=== PATIENT | male | born 1955 | race Caucasian/White ===

== ENCOUNTER 2019-03-07 11:04 | Emergency (ER) | payer BC ==
[~2019-03-07] VITALS: Ht 203.2 cm; Wt 136.1 kg
[2019-03-07] MEDS ORDERED: ASPIRIN CHEWABLE 81 MG TABLET. PO ONE (11:15)
--- NOTE | 2019-03-07 11:18 | PHYS DOC ---
Adult General Chief Complaint Chief Complaint: CHEST PAIN HPI HPI Patient is a 63 year old male who is presenting with chest discomfort. He says it feels like there is a "bubble pushing up on my heart". Symptoms are moderate to severe slowly worsening with time He's had this for about an hour he was driving when it started to try to get her walk around but that did not help it did not really make it worse either he feels like it hurts to take a deep breath. He did take some sort of a laxative for constipation last night he woke up this morning and he did have some sort of the gurgling in his stomach but did not actually have a bowel movement and then this pain started shortly after that. Past medical history includes hypertension does see Dr. Savage denies smoking alcohol or drugs positive family history of coronary artery disease in the father Review of Systems Review of Systems Constitutional: Denies fever or chills [] Eyes: Denies change in visual acuity, redness, or eye pain [] HENT: Denies nasal congestion or sore throat [] Respiratory: Denies cough or shortness of breath [] Cardiovascular: No additional information not addressed in HPI [] GI: Denies abdominal pain, nausea, vomiting, bloody stools or diarrhea [] : Denies dysuria or hematuria [] Musculoskeletal: Denies back pain or joint pain [] Integument: Denies rash or skin lesions [] Neurologic: Denies headache, focal weakness or sensory changes [] Endocrine: Denies polyuria or polydipsia [] All other systems were reviewed and found to be within normal limits, except as documented in this note. Current Medications Current Medications Current Medications Medications (Trade) Dose Ordered Sig/Hamlet Start Time Stop Time Status Last Admin Dose Admin Aspirin (Children'S Aspirin) 324 mg 1X ONCE 03/07/19 11:15 03/07/19 11:37 DC 03/07/19 11:44 324 MG Fentanyl Citrate (Fentanyl 2ml Vial) 50 mcg 1X ONCE 03/07/19 11:30 03/07/19 11:37 DC 03/07/19 11:51 50 MCG Info (CONTRAST GIVEN -- Rx MONITORING) 1 each PRN DAILY PRN 03/07/19 13:00 03/07/19 16:04 DC Iohexol (Omnipaque 350 Mg/ml) 85 ml 1X ONCE 03/07/19 13:00 03/07/19 13:01 DC Allergies Allergies Allergies Coded Allergies Type Severity Reaction Last Updated Verified No Known Drug Allergies 03/07/19 No Physical Exam Physical Exam Constitutional: Well developed, well nourished, moderate distress patient is diaphoretic HENT: Normocephalic, atraumatic, bilateral external ears normal, oropharynx moist, no oral exudates, nose normal. [] Eyes: PERRLA, EOMI, conjunctiva normal, no discharge. [] Neck: Normal range of motion, no tenderness, supple, no stridor. [] Cardiovascular:Heart rate regular rhythm, no murmur [] Lungs & Thorax: Bilateral breath sounds clear to auscultation [] Abdomen: Bowel sounds normal, soft, no tenderness, no masses, no pulsatile masses. [] Skin: See above Back: No tenderness, no CVA tenderness. [] Extremities: No tenderness, no cyanosis, no clubbing, ROM intact, asymmetric ed ju noted lle. Neurologic: Alert and oriented X 3, normal motor function, normal sensory function, no focal deficits noted. [] Psychologic: Affect normal, judgement normal, mood normal. [] Current Patient Data Vital Signs Vital Signs Date Time Temp Pulse Resp B/P (MAP) Pulse Ox O2 Delivery O2 Flow Rate FiO2 03/07/19 11:57 72 18 180/99 (126) 95 Room Air 03/07/19 11:16 98.7 98.7 Lab Values Laboratory Tests Test 03/07/19 11:35 White Blood Count 8.8 x10^3/uL (4.0-11.0) Red Blood Count 4.53 x10^6/uL (4.30-5.70) Hemoglobin 14.0 g/dL (13.0-17.5) Hematocrit 40.2 % (39.0-53.0) Mean Corpuscular Volume 89 fL (79-100) Mean Corpuscular Hemoglobin 31 pg (25-35) Mean Corpuscular Hemoglobin Concent 35 g/dL (31-37) Red Cell Distribution Width 12.3 % (11.5-14.5) Platelet Count 218 x10^3/uL (140-400) Neutrophils (%) (Auto) 78 % (31-73) H Lymphocytes (%) (Auto) 9 % (24-48) L Monocytes (%) (Auto) 11 % (0-9) H Eosinophils (%) (Auto) 2 % (0-3) Basophils (%) (Auto) 0 % (0-3) Neutrophils # (Auto) 6.9 x10^3/uL (1.8-7.7) Lymphocytes # (Auto) 0.8 x10^3/uL (1.0-4.8) L Monocytes # (Auto) 0.9 x10^3/uL (0.0-1.1) Eosinophils # (Auto) 0.2 x10^3/uL (0.0-0.7) Basophils # (Auto) 0.0 x10^3/uL (0.0-0.2) Prothrombin Time 14.3 SEC (11.7-14.0) H Prothrombin Time INR 1.1 (0.8-1.1) Sodium Level 143 mmol/L (136-145) Potassium Level 3.4 mmol/L (3.5-5.1) L Chloride Level 104 mmol/L (98-107) Carbon Dioxide Level 28 mmol/L (21-32) Anion Gap 11 (6-14) Blood Urea Nitrogen 19 mg/dL (8-26) Creatinine 1.4 mg/dL (0.7-1.3) H Estimated GFR (Cockcroft-Gault) 51.2 BUN/Creatinine Ratio 14 (6-20) Glucose Level 107 mg/dL (70-99) H Calcium Level 8.7 mg/dL (8.5-10.1) Total Bilirubin 1.0 mg/dL (0.2-1.0) Aspartate Amino Transferase (AST) 22 U/L (15-37) Alanine Aminotransferase (ALT) 24 U/L (16-63) Alkaline Phosphatase 169 U/L (46-116) H Troponin I Quantitative < 0.017 ng/mL (0.000-0.055) LL-Tvh-R-Type Natriuretic Peptide 543 pg/mL (0-124) H Total Protein 7.1 g/dL (6.4-8.2) Albumin 3.3 g/dL (3.4-5.0) L Albumin/Globulin Ratio 0.9 (1.0-1.7) L Laboratory Tests 03/07/19 11:35 Laboratory Tests 03/07/19 11:35 EKG EKG []EKG #1 did show normal sinus rhythm with a rate of 76 there is a incomplete right bundle branch block pattern poor baseline in the inferior leads there are some ST depressions laterally no definite STEMI is identified on this EKG will repeat REPEAT SIMILAR REVIEWEED WITH AJ AT 1135 AM. NO STEMI IT IS Q'D OUT ANTERIORLY. USUAL ADMIT AND R/O FOR NOW Radiology/Procedures Radiology/Procedures [] Impressions: IMPRESSION: 1. Positive for pulmonary embolism. There are multiple pulmonary emboli in the left upper lobe and left lower lobe branches, and to lesser extent right lower lobe. 2. Ectasia of the ascending aorta. 3. Small subpleural nodule left lower lobe. As per revised Fleischner guidelines, could consider follow-up CT chest in 12 months if patient is high risk. 4. Small focal opacity at the anterior lingula, most likely infiltrate or atelectasis. Given the somewhat focal nature, recommend chest CT follow-up to document that this resolves. Electronically signed by: Morgan Peerz MD (03/07/2019 1:49 PM) [facility] FOR INTERNAL CODING PURPOSES Critical result: Findings discussed with Dr. Winn in the emergency room at 03/07/2019 1:49 PM. RESULT CODE: (C) noted lower extremity dvt. Course & Med Decision Making Course & Med Decision Making Pertinent Labs and Imaging studies reviewed. (See chart for details) [63-year-old male presented with left pleuritic chest pain found to have a lower extremity DVT as well as bilateral PE. Blood pressure was also quite elevated EKG did show a right bundle branch block some borderline ST depressions laterally. Overall I was highly concerned about this patient and talked to the patient's primary care doctor Dr. savage who she saw this patient emergency room and he and I both tried he tried for approximately 15 minutes if not longer and I spent at least 10 minutes if not 15 minutes or longer talking to the patient in detail about the diagnosis and the need for admission for cardiac and respiratory monitoring as well as IV heparin and anticoagulation. I did tell him this was a very high risk diagnosis I was concerned that he could have more blood clots break off to his lungs this could be fatal at any time. This could lead to significant morbidity or mortality he did mention that he has to work tomorrow he cannot lose his job he is undergoing some financial stressors related to a relationship he tells me he just cannot have any chance at all of missing work tomorrow. I did tell him that he may only be in the hospital for a couple of days if everything is stable but I strongly strongly recommended he be admitted to the hospital I told him that I was extremely worried about him worried if he left the hospital I offered to call his partner to talk apparently a he is currently with a trying to get back together he declined that. I tried anyway I couldn't convince him to stay in the hospital he was unable to be convinced. He is of sound mind he was alert and oriented �3 his oxygenation was adequate his blood pressure was elevated but he had no altered mental status secondary to this. I did talk with his primary care doctor yaniv over the telephone who will follow-up with him tomorrow. I discussed the come back at any time should he change his mind and develop any acute or worsening symptoms. I did give him a dose of xarelto in the emergency room. We talked [employer] benefits and I could not get him to stay. He signed AGAINST MEDICAL ADVICE form prior to discharge he remained calm throughout er visit. Dragon Disclaimer Dragon Disclaimer This electronic medical record was generated, in whole or in part, using a voice recognition dictation system. Departure Departure Impression: Primary Impression: Chest pain Additional Impression: Pulmonary emboli Disposition: AGAINST MEDICAL ADVICE Condition: GUARDED Scripts Rivaroxaban (XARELTO) 15 Mg Tablet 15 MG PO BID for 21 Days, #42 TAB FINISH THIS AND THEN CALL OR SEE DR SAVAGE FOR REFILL Prov: ESTRELLA WINN MD 03/07/19 Problem Qualifiers ESTRELLA WINN MD Mar 07, 2019 11:18
[2019-03-07] MEDS ORDERED: fentaNYL PF VIAL 100 MCG/2 ML VIAL IV ONE (11:30)
--- NOTE | 2019-03-07 11:33 | RAD ---
PORTABLE CHEST 1V History: Chest pain. Heart size is not enlarged. No evidence of pneumothorax. No pleural effusion. No evidence of pleural effusion. Bones appear grossly intact. IMPRESSION: No consolidating infiltrate. Electronically signed by: Morgan Perez MD (03/07/2019 11:30 AM) [facility]
[2019-03-07 11:47] LABS: BASO % 0 % (0-3); EOS # 0.2 x10^3/uL (0.0-0.7); EOS % 2 % (0-3); HEMATOCRIT 40.2 % (39.0-53.0); LYMPH # 0.8 x10^3/uL (1.0-4.8); LYMPH % 9 % (24-48); MEAN CORPUSCULAR HEMOGLOBIN 31 pg (25-35); MEAN CORPUSCULAR HGB CONC 35 g/dL (31-37); MEAN CORPUSCULAR VOLUME 89 fL (79-100); MONO # 0.9 x10^3/uL (0.0-1.1); MONO % 11 % (0-9); NEUT # 6.9 x10^3/uL (1.8-7.7); NEUT % 78 % (31-73); PLATELET COUNT 218 x10^3/uL (140-400); RED BLOOD COUNT 4.53 x10^6/uL (4.30-5.70); RED CELL DISTRIBUTION WIDTH 12.3 % (11.5-14.5); WHITE BLOOD COUNT 8.8 x10^3/uL (4.0-11.0)
[2019-03-07 11:54] LABS: CALCIUM 8.7 mg/dL (8.5-10.1); CREATININE 1.4 mg/dL (0.7-1.3); GFR 51.2; POTASSIUM 3.4 mmol/L (3.5-5.1)
[2019-03-07 11:59] LABS: ALBUMIN 3.3 g/dL (3.4-5.0); ALBUMIN/GLOBULIN RATIO 0.9 (1.0-1.7); TOTAL PROTEIN 7.1 g/dL (6.4-8.2)
[2019-03-07 12:10] LABS: PROTHROMBIN TIME PATIENT 14.3 SEC (11.7-14.0)
[2019-03-07] MEDS ORDERED: IOHEXOL 350 MG/ML 100 ML VIAL. IV ONE (13:00)
[2019-03-07] MEDS ORDERED: CONTRAST GIVEN. MC PRN (13:00)
--- NOTE | 2019-03-07 13:16 | RAD ---
Left lower extremity venous doppler ultrasound Indication: Left leg swelling Technique: Color Doppler, grayscale, and spectral waveform analysis is used to evaluate the left femoral and popliteal veins. Findings: Thrombus is identified within the left popliteal artery which is distended and noncompressible. Flow is identified within the left common femoral and superficial femoral vein. Flow is identified within the visualized calf veins. Impression: Exam is positive for deep venous thrombosis. Occlusive thrombus identified in the left popliteal vein. FOR INTERNAL CODING PURPOSES Critical result: Findings discussed with Dr. Winn in the emergency room at 03/07/2019 1:11 PM. RESULT CODE: (C) Electronically signed by: Morgan Perez MD (03/07/2019 1:13 PM) [facility]
--- NOTE | 2019-03-07 13:19 | PDOC ---
Provider Note Provider Note Patient seen. History and Physical dictated. See dictation#[id number] YAEL CARTY MD Mar 07, 2019 13:19
[2019-03-07] MEDS ORDERED: NITROGLYCERIN SUBLINGUAL 0.4 MG BOTTLE OF 25. SL PRN (13:30)
--- NOTE | 2019-03-07 13:52 | RAD ---
CT ANGIOGRAPHY CHEST Indication: DVT. . Technique: After intravenous contrast administration, CT imaging was performed of the chest. MIP reconstructions were obtained. Exposure: One or more of the following individualized dose reduction techniques were utilized for this examination: 1. Automated exposure control 2. Adjustment of the mA and/or kV according to patient size 3. Use of iterative reconstruction technique. No prior study for comparison FINDINGS: Multiple pulmonary emboli are identified in left lower lobe and upper lobe branches. Smaller emboli are identified in right lower lobe arteries. Ascending aorta measures 4 cm diameter compatible with ectasia. No gross aortic aneurysm. Mild wall irregularity of the ascending aorta is likely pulsatility artifact. No evidence of descending aortic dissection. Proximal great vessels are patent. No significant lymph node enlargement. No pericardial effusion. No pleural effusion. Thyroid is unremarkable. Small subpleural nodule in the left lower lobe, image 115, measures 5 mm. Mild opacity in the anterior left lingula, most likely infiltrate or atelectasis. Trachea and mainstem bronchi are patent. Degenerative spondylosis. Vertebral body height and alignment are intact. Scans through the upper abdomen are limited due to technique, without definite acute abnormality. IMPRESSION: 1. Positive for pulmonary embolism. There are multiple pulmonary emboli in the left upper lobe and left lower lobe branches, and to lesser extent right lower lobe. 2. Ectasia of the ascending aorta. 3. Small subpleural nodule left lower lobe. As per revised Fleischner guidelines, could consider follow-up CT chest in 12 months if patient is high risk. 4. Small focal opacity at the anterior lingula, most likely infiltrate or atelectasis. Given the somewhat focal nature, recommend chest CT follow-up to document that this resolves. Electronically signed by: Morgan Perez MD (03/07/2019 1:49 PM) [facility] FOR INTERNAL CODING PURPOSES Critical result: Findings discussed with Dr. Winn in the emergency room at 03/07/2019 1:49 PM. RESULT CODE: (C)
[2019-03-07] MEDS ORDERED: HEPARIN 25,000UTS/500ML PREMIX 500 ML IV PRN (14:00)
[2019-03-07] MEDS ORDERED: HEPARIN for IV BOLUS 10,000 UNIT/10 ML VIAL. IV PRN ×2 (14:00)
[2019-03-07 14:01] VITALS: BP 238/140
[2019-03-07] MEDS ORDERED: RIVA15TA PO (14:11)
[2019-03-07] MEDS ORDERED: RIVAROXABAN 15 MG TABLET. PO STA (14:12)
--- NOTE | 2019-03-07 16:59 | EKG ---
[address] [place] [address] Test Date: 2019-03-07 Test Time: 11:13:26 Pat Name: GATO SUN Department: Room: Gender: M Supervisor Blood: : 1955 Requested By: ESTRELLA SWANN Order Number: [id number] Reading MD: Measurements Intervals Harrison Rate: 76 P: -30 MD: 198 QRS: -22 QRSD: 108 T: 26 QT: 380 QTc: 432 Interpretive Statements SINUS RHYTHM LEFTWARD AXIS INCOMPLETE RIGHT BUNDLE BRANCH BLOCK QRS(T) CONTOUR ABNORMALITY CONSISTENT WITH SEPTAL INFARCT PROBABLY OLD ABNORMAL ECG RI6.01 No previous ECG available for comparison
--- NOTE | 2019-03-07 20:02 | HP ---
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 He started having chest pains on the left side of the chest that is somewhat pleuritic, but not associated with any cough or fever. Because of the persistent chest pain, he came to the Emergency Room. In the Emergency Room, he was somewhat diaphoretic. He also has had some abdominal pain and constipation and because he took a laxative last night he had some gurgling and abdominal discomfort also at the time when he had the chest pains. The patient denies any dyspnea, fever, chills, palpitations, dizziness. He did admit to swelling of both lower extremities, especially the left leg for last few days. In the Emergency Room, he was evaluated. Venous Doppler of the left lower extremity showed deep vein thrombosis of the popliteal vein. Chest x-ray was unremarkable. CT of the chest is pending. First set of cardiac enzymes is normal. BNP is 543. Sodium 143, potassium 3.4, BUN 19, creatinine 1.4, albumin 3.3, glucose 107, calcium 8.7. WBC count is 8.8 and hemoglobin 14. INR 1.1. EKG showed incomplete right bundle branch block, sinus rhythm and some ST depression laterally, poor R-wave progression. Because of his chest pain and possibility of pulmonary embolism and venous thrombosis of the left lower extremity, it was decided to go ahead and admit the patient for further evaluation and management. SYSTEMS REVIEW: As noted in the history of present illness. PAST MEDICAL HISTORY: The patient has a history of hypertension. FAMILY HISTORY: Father has coronary artery disease. SOCIAL HISTORY: No history of smoking, alcoholism or drug abuse. 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 ALLERGIES: None known any. PHYSICAL EXAMINATION: VITAL SIGNS: Temperature 98.7, pulse 77 per minute, respirations 20 per minute and blood pressure 165/79 mmHg. GENERAL: The patient is a middle-aged male, who is alert and oriented x 3 and not in acute distress. EYES: Pupils are equal and reactive to light. Conjunctivae pink. Sclerae white. HEENT: Unremarkable. NECK: Supple. JVP normal. No thyromegaly. Trachea midline. LUNGS: Clear. CARDIOVASCULAR SYSTEM: S1, S2 regular. ABDOMEN: Soft, nontender, no guarding, no rigidity. Bowel sounds present. EXTREMITIES: The patient has 2+ edema of the left lower extremity with no significant calf tenderness, no cyanosis. Right lower extremity, trace edema. CENTRAL NERVOUS SYSTEM: Alert and oriented, no acute changes. LABORATORY FINDINGS AND IMAGING STUDIES: As noted above. CT of the chest has not been done yet. IMPRESSION: 1. Chest pain, etiology not clear. Check for pulmonary embolism, rule out myocardial infarction. 2. Left lower extremity deep vein thrombosis. PLAN: CT scan of chest has been ordered. Discussed with the ER physician. The patient will need to be admitted to check for cardiac and pulmonary issues. Extensively discussed with the patient about the seriousness of his condition including the DVT and possibility of pulmonary embolism. 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 We will admit him and await further reports and further action. For details, please refer to the orders. Once he gets admitted, I will give more orders. YAEL CARTY MD DR: GARETH/shanel JOB#: [id number] / [id number] I spoke to the ER physician later again and he told me that the patient had left AGAINST MEDICAL ADVICE. The patient was also noted to have pulmonary embolism. The ER physician and also spoken to the patient extensively and advised him to stay but patient declined. I had also extensively discussed with him about the risks of the pulmonary embolism including sudden and the cardiac arrest as well as respiratory failure. He was also told that he cannot be active for 2 days until the blood clot is stabilized. The patient was discharged by the ER physician on Xarelto. I have asked the office staff yesterday to contact him to have him come to the office soon. The patient is extremely noncompliant. He was supposed to be on multiple blood pressure medications but I'm not sure if he is taking any. CODEY
== END 2019-03-07 14:24 | disposition left against medical advice (07) ==
LOC: ER 11:04 → UNDOADMIN 13:00 → 2 SOUTH 13:00
DX: R07.89 Other chest pain (principal); I26.99 Other pulmonary embolism without acute cor pulmonale; I82.402 Acute embolism and thrombosis of unspecified deep veins of left lower extremity; I82.432 Acute embolism and thrombosis of left popliteal vein; F32.9 Major depressive disorder, single episode, unspecified; I10 Essential (primary) hypertension; I21.9 Acute myocardial infarction, unspecified; Z79.82 Long term (current) use of aspirin
CPT/HCPCS: 36415; 71045; 71275; 80053; 83880; 84484; 85025; 85610; 93005; 93971; 96374; 99285; J3010

== ENCOUNTER 2019-10-30 19:31 | Emergency (ER) | payer BC ==
[~2019-10-30] VITALS: Ht 200.7 cm; Wt 118.0 kg
[~2019-10-30 19:31] MED LIST: RIVA15TA PO
--- NOTE | 2019-10-30 19:41 | PHYS DOC ---
Past Medical History Past Medical History: Hypertension Past Surgical History: No Surgical History Smoking Status: Never Smoker Alcohol Use: None Drug Use: None General Adult EDM: Chief Complaint: NOSEBLEED HPI: HPI: Patient is a 64 year old male who presents with complaint of nosebleed that started approximately 25 minutes ago. Patient states that he is on Xarelto. He states that bleeding was spontaneous. He denies any congestion or blowing his nose. He denies any injuries.[] Review of Systems: Review of Systems: Constitutional: Denies fever or chills. [] HENT: Positive epistaxis. [] Respiratory: Denies cough or shortness of breath. [] Cardiovascular: Denies chest pain or edema. [] Integument: Denies rash. [] Neurologic: Denies headache, focal weakness or sensory changes. [] Heart Score: Risk Factors: Risk Factors: DM, Current or recent (<one month) smoker, HTN, HLP, family history of CAD, obesity. Risk Scores: Score 0 - 3: 2.5% MACE over next 6 weeks - Discharge Home Score 4 - 6: 20.3% MACE over next 6 weeks - Admit for Clinical Observation Score 7 - 10: 72.7% MACE over next 6 weeks - Early Invasive Strategies Allergies: Allergies: Allergies Coded Allergies Type Severity Reaction Last Updated Verified No Known Drug Allergies 03/07/19 No Physical Exam: PE: Constitutional: Well developed, well nourished, no acute distress, non-toxic appearance. [] HENT: Normocephalic, atraumatic, bilateral external ears normal, oropharynx moist, with active bleeding from left naris. [] Cardiovascular: Regular rate and rhythm[] Lungs & Thorax: Bilateral breath sounds clear to auscultation [] Skin: Warm, dry, no erythema, no rash. [] Neurologic: Alert and oriented X 3, no focal deficits noted. [] EKG: EKG: [] Radiology/Procedures: Radiology/Procedures: [] Course & Med Decision Making: Course & Med Decision Making Pertinent Labs and Imaging studies reviewed. (See chart for details) Patient moved to room upon arrival was evaluated by your medical staff after which patient was given Afrin into his left naris and direct pressure was applied for 20 minutes. Despite direct pressure, bleeding continued and patient's left naris was packed utilizing 4-1/2 cm rapid Rhino nasal balloon. At this point, bleeding has stopped and patient will be discharged home with instructions to follow up with ENT in 72 hours for nasal balloon removal or to follow up here for removal of bleeding. Belle Disclaimer: Belle Disclaimer: This electronic medical record was generated, in whole or in part, using a voice recognition dictation system. Departure Departure Impression: Primary Impression: Epistaxis Additional Impression: Hypertension Qualified Codes: I10 - Essential (primary) hypertension Disposition: 07 AGAINST MEDICAL ADVICE Condition: GOOD Referrals: UNKNOWN PCP NAME (PCP) Patient Instructions: Nosebleed Additional Instructions: Follow-up with ENT or return to the emergency room in 72 hours for removal of nasal packing. JOSE WELSH Jr. DO Oct 30, 2019 19:41
[2019-10-30] MEDS ORDERED: OXYMETAZOLINE 0.05% NASAL SPRAY 30ML BOTTLE. NS ONE (19:45)
[2019-10-30] MEDS ORDERED: cloNIDine HCL 0.1 MG TABLET ONE (20:35)
[2019-10-30] MEDS ORDERED: cloNIDine HCL 0.1 MG TABLET PO ONE (20:45)
[2019-10-30] MEDS ORDERED: LORazepam 0.5 MG TABLET PO ONE (22:00)
[2019-10-30] MEDS ORDERED: traMADol 50 MG TABLET PO ONE (22:00)
[2019-10-30] MEDS ORDERED: hydrALAZINE 20 MG/ML VIAL. IVP ONE (23:00)
[2019-10-30 23:10] VITALS: BP 211/114
== END 2019-10-30 23:10 | disposition left against medical advice (07) ==
LOC: ER 19:31
DX: R04.0 Epistaxis (principal); I10 Essential (primary) hypertension
CPT/HCPCS: 30901; 99285-25